=== PATIENT | female | born 1975 | race Caucasian/White ===

== ENCOUNTER 2019-05-23 05:54 | Outpatient (CLI) | payer OTHER ==
[~2019-05-23] VITALS: Ht 175.3 cm; Wt 84.1 kg
[~2019-05-23 05:54] MED LIST: DULO60CA7 PO; METO25TA91 PO; VALA500T4 PO
[2019-05-23 11:30] VITALS: BP 123/78
[2019-05-23] MEDS ORDERED: VEDOLIZUMAB 300 MG in SODIUM CHLORIDE 0.9% 250 ML IV ONE (12:00)
== END 2019-05-23 23:59 | disposition home or self-care (01) ==
LOC: INFUSION 05:54
PROVIDERS: ATTEND Internal Medicine Gastroenterology
DX: K50.00 Crohn's disease of small intestine without complications (principal)
CPT/HCPCS: 96365; J3380; J7050

== ENCOUNTER 2019-07-18 09:53 | Outpatient (CLI) | payer OTHER ==
[~2019-07-18] VITALS: Ht 172.7 cm; Wt 83.7 kg
[2019-07-18] MEDS ORDERED: PLEASE ENTER HEIGHT AND WEIGHT MC SCH (10:00)
[2019-07-18] MEDS ORDERED: VEDOLIZUMAB 300 MG in SODIUM CHLORIDE 0.9% 250 ML IV ONE (11:00)
[2019-07-18 14:39] VITALS: BP 123/85
== END 2019-07-18 23:59 | disposition home or self-care (01) ==
LOC: INFUSION 09:53
PROVIDERS: ATTEND Internal Medicine Gastroenterology
DX: K50.00 Crohn's disease of small intestine without complications (principal)
CPT/HCPCS: 96365; J3380; J7050; 96361

== ENCOUNTER 2019-09-12 09:54 | Outpatient (CLI) | payer OTHER ==
[~2019-09-12] VITALS: Ht 172.7 cm; Wt 85.2 kg
[2019-09-12 10:05] VITALS: BP 126/86
[2019-09-12] MEDS ORDERED: VEDOLIZUMAB 300 MG in SODIUM CHLORIDE 0.9% 250 ML IV ONE (10:30)
== END 2019-09-12 23:59 | disposition home or self-care (01) ==
LOC: INFUSION 09:54
PROVIDERS: ATTEND Internal Medicine Gastroenterology
DX: K50.00 Crohn's disease of small intestine without complications (principal)
CPT/HCPCS: 96365; J3380; J7050